=== PATIENT | female | born 1980 | race Caucasian/White ===

== ENCOUNTER 2016-11-04 09:04 | Emergency (ER) | payer OTHER ==
[~2016-11-04] VITALS: Ht 167.6 cm; Wt 95.3 kg
[~2016-11-04 09:04] MED LIST: DOCUSATE SODIU100 MG PO; IBUPROFEN800 MG PO; IRON IV; MOBIC 15MG15 MG PO; MOTRIN 400MG (400 MG PO; MOTRIN 600 MG600 MG PO; NATURAL IRON65 MG PO; PERCOCET 325 MG1 TA2 PO; PERCOCET 500 MG1 TAB PO; PROAIR HFA0.09 MG/Ac INH; ROBITUSSIN W/CO10 ML PO; SYMBICORT 160/41 PUF INH; VICODIN5-300 PO; ZITHROMAX Z-PA250 M1 PO
--- NOTE | 2016-11-04 09:34 | ED HEADACHE COMPLAINT ---
History of Present Illness General Chief Complaint: Headache Stated Complaint: CABRERA, (SHARP SHOOTING PAINS) Source: patient, old records Exam Limitations: no limitations Vital Signs & Intake/Output Vital Signs & Intake/Output ED Intake and Output 11/05 0000 03 1200 Intake Total 100 Output Total Balance 100 Intake, IV 100 Patient 210 lb Weight Allergies Coded Allergies: MDX - Cephalosporin (Cephalosporin) (Intermediate, VOMITING AND HIVES 10/30/14) CEPHALOSPORINS PER ANTIBIOTIC ORDER SHEET OF 12/29/13 ([facility]) MDX - Ciprofloxacin (From CIPRO) (Intermediate, VOMITING AND HIVES 10/30/14) MDX - Penicillin (Intermediate, VOMITING AND HIVES 10/30/14) MDX - SULFA (sulfonamide) (Intermediate, VOMITING AND HIVES 10/30/14) Reconcile Medications Duloxetine HCl 30 MG CAPSULE.DR 1 CAP PO DAILY PER PT (Reported) Norethindrone (Elizabeth) 0.35 MG TABLET 1 TAB PO DAILY CONTROL (Reported) Topiramate 25 MG TABLET 1 TAB PO BID PER PT (Reported) Triage Note: C/O SHOOTING PAIN IN BACK OF HEAD SINCE LAST PM, AFTER TRIPPING OVER DOG AND CATCHING SELF. STATES SHE WAS UNABLE TO HEAR FOR A FEW MINUTES. NOW STATES PAIN IS WORSE WITH DIZZINESS AND BLURRED VISION. PMH: NORMAL PRESSURE HYDROCEPHALIS Triage Nurses Notes Reviewed? yes Onset: Abrupt Duration: day(s): (1) Timing: single episode today Quality/Severity: moderate Head Injury Location: occipital Modifying Factors: Worsens With: movement. : No Patient currently breastfeeds: No HPI: 35 year old female with history of communicating hydrocephalus and fibromyalgia presents with postserior headache since yesterday after tripping over her dog and stamping her foot to stabilize herself. No fall or head trauma. She reports that her headache came on suddenly at that point. No blurred vision, no fevers. No vomiitng but some nausea. She took her topamax which she takes for her headaches. Today she felt headache of the same intensity and came to the ed for evaluation. She follows up with neurosurgery through [facility] and has had a previous LP but none in a few years. They monitor her with CT scans. Past History Travel History Traveled to [place] past 21 day No Medical History Any Pertinent Medical History? see below for history Neurological: HYDROCEPHALUS EENT: NONE Cardiovascular: NONE Respiratory: asthma Gastrointestinal: NONE Hepatic: NONE Renal: NONE Musculoskeletal: FIBROMYALGIA Psychiatric: NONE Endocrine: GESTATIONAL DIABETES Blood Disorders: anemia Cancer(s): NONE Tetanus Vaccine: 03/06/12 Surgical History Surgical History: , hysterectomy Psychosocial History What is your primary language Mosotho Tobacco Use: Never used ETOH Use: denies use Family History Hx Contributory? No Review of Systems Review of Systems Constitutional: Denies: chills, fever. Eyes: Denies: blurred vision. Ears, Nose, Throat, Mouth: Reports: no symptoms. Respiratory: Denies: cough, short of breath, sputum production. Cardiovascular: Denies: chest pain, palpitations. Gastrointestinal/Abdominal: Reports: nausea. Denies: abdominal pain, vomiting. Genitourinary: Denies: discharge, dysuria, frequency. Musculoskeletal: Reports: no symptoms. Skin: Reports: no symptoms. Neurological/Psychological: Reports: headache. Denies: anxiety, ataxia, confusion. Hematologic/Endocrine: Denies: bruising, bleeding, polyuria, polydipsia. Endocrine: Reports: no symptoms. Immunologic/Allergic: Reports: no symptoms. All Other Systems: Reviewed and Negative Physical Exam Physical Exam General Appearance: well developed/nourished, alert, awake, mild distress Head: atraumatic, active bleeding Eyes: Bilateral: normal appearance, PERRL, EOMI. Ears, Nose, Throat: normal pharynx, normal ENT inspection, hearing grossly normal Neck: normal inspection, supple, full range of motion Respiratory: normal breath sounds, chest non-tender, no respiratory distress Cardiovascular: regular rate/rhythm Gastrointestinal: normal bowel sounds, soft, non-tender Extremities: normal inspection, normal range of motion Psychiatric: awake, alert, oriented x 3 Cranial Nerves: normal hearing, normal speech, PERRL Coordination/Gait: normal gait Skin: intact, normal color, warm/dry Comments: neuro examination intact. no meningismus. neck supple, full range of motion. Core Measures Severe Sepsis Present: No Septic Shock Present: No Progress Differential Diagnosis: IC mass/tumor, intracranial Hem., migraine CABRERA, musculoskeletal pain, SSS thrombosis, subarach. Hem., tension CABRERA Plan of Care: Current Medications Sig/Masood Start time Last Medication Dose Stop Time Status Admin Metoclopramide HCl 10 MG ONCE ONE 11/04 1145 UNVr (Reglan) 11/04 1146 Sodium Chloride 1,000 ML BOLUS ONE 11/04 1145 UNVr (Normal Saline 0.9%) 11/04 1244 10:[address] NO RELIEF WITH IV TYLENOL. IV MORPHINE ORDERED. 11:45 PM NO RELIEF WITH MORPHINE. DILAUDID, REGLAN, IV FLUIDS ORDERED. CT head negative for acute pathology. patient feeling better, will discharge to follow up with neurology. (ESTELA MARTINEZ,HALEY) Diagnostic Imaging: Viewed by Me: CT Scan. Discussed w/RAD: CT Scan. Comments: PATIENT: CIERRA HASTINGS PRESENT AGE: 35 PATIENT ACCOUNT NO: [id number] : 80 LOCATION: [facility] ORDERING PHYSICIAN: HALEY PALMER MD SERVICE DATE: 11/04/16 EXAM TYPE: CAT - CT HEAD WO IV CONTRAST EXAMINATION: CT HEAD WITHOUT CONTRAST CLINICAL INFORMATION: History of normal pressure hydrocephalus. COMPARISON: CT head dated 07/18/2014. CT head dated 03/22/2014. TECHNIQUE: Contiguous axial imaging was performed from the skull base to vertex without intravenous administration of contrast. DLP: 600.71 mGy-cm FINDINGS: There is severe enlargement of the ventricular system including the lateral ventricles, third ventricle and fourth ventricle. The frontal horn of the right lateral ventricle measures up to 3.3 cm in diameter, similar to examination dated 03/22/2014. The third ventricle measures up to 1.7 cm in transaxial diameter, again very similar to what was seen on 03/22/2014 CT examination. The fourth ventricle appears stable in size compared with 03/22/2014 CT examination. There is no intracranial hemorrhage. There is no extra-axial fluid collection or midline shift. The orbits are unremarkable. Paranasal sinuses and mastoid air cells are clear. IMPRESSION: Severe communicating hydrocephalus, similar in extent to 03/22/2014 CT examination. No intracranial hemorrhage. DICTATED BY: WALLACE GUTIERREZ MD DATE/TIME DICTATED:11/04/161018 BUSINESS SYSTEM CONSULTANT:SETH DATE/TIME TRANSCRIBED:11/04/161018 CONFIDENTIAL, DO NOT COPY WITHOUT APPROPRIATE AUTHORIZATION. <Electronically signed in Other Vendor System> SIGNED BY: WALLACE GUTIERREZ MD 11/04/16 1031 Departure Departure Time of Disposition: 1333 Disposition: HOME OR SELF CARE Condition: Stable Clinical Impression Primary Impression: Hydrocephalus Referrals: CHAPIN MARTINEZ,DENISSE GRUBBS APRN (PCP/Family) ANTONI SHAH MD Additional Instructions: FOLLOW UP WITH DR SAMSON AND WITH YOUR NEUROSURGEON OR THE ONE LISTED HERE. CONTINUE YOUR TOPAMAX AND YOUR OTHER MEDICATIONS. RETURN NEEDED. Departure Forms: Customer Survey General Discharge Information
--- NOTE | 2016-11-04 10:31 | CT SCAN REPORT ---
EXAMINATION: CT HEAD WITHOUT CONTRAST CLINICAL INFORMATION: History of normal pressure hydrocephalus. COMPARISON: CT head dated 07/18/2014. CT head dated 03/22/2014. TECHNIQUE: Contiguous axial imaging was performed from the skull base to vertex without intravenous administration of contrast. DLP: 600.71 mGy-cm FINDINGS: There is severe enlargement of the ventricular system including the lateral ventricles, third ventricle and fourth ventricle. The frontal horn of the right lateral ventricle measures up to 3.3 cm in diameter, similar to examination dated 03/22/2014. The third ventricle measures up to 1.7 cm in transaxial diameter, again very similar to what was seen on 03/22/2014 CT examination. The fourth ventricle appears stable in size compared with 03/22/2014 CT examination. There is no intracranial hemorrhage. There is no extra-axial fluid collection or midline shift. The orbits are unremarkable. Paranasal sinuses and mastoid air cells are clear. IMPRESSION: Severe communicating hydrocephalus, similar in extent to 03/22/2014 CT examination. No intracranial hemorrhage.
[2016-11-04] MEDS ORDERED: DULOXETINE HCL30 MG PO (11:30)
[2016-11-04] MEDS ORDERED: TOPIRAMATE25 M2 PO (11:30)
[2016-11-04] MEDS ORDERED: CAMILA0.35 M1 PO (11:31)
[2016-11-04 11:42] VITALS: BP 120/91
== END 2016-11-04 13:43 ==
LOC: ERH 09:04
DX: G91.9 Hydrocephalus, unspecified (principal)
CPT/HCPCS: 96361; 96374; 96375; J0131; J2765